=== PATIENT | female | born 1975 | race Caucasian/White ===

== ENCOUNTER 2021-08-30 04:01 | Emergency (ER) | payer BC ==
[~2021-08-30] VITALS: Ht 170.2 cm; Wt 62.6 kg
--- NOTE | 2021-08-30 04:17 | NUR ---
pt in room 5a pt ambulated to the room pt states she is having abdominal pain and fever. Dr. Tello at bedside for MSE.
[2021-08-30] MEDS ORDERED: IV NORMAL SALINE 1000 ML BAG IV ONE (04:30)
[2021-08-30] MEDS ORDERED: ONDANSETRON 4 MG/2 ML VIAL IV ONE (04:30)
[2021-08-30] MEDS ORDERED: ACETAMINOPHEN ES 500 MG TABLET PO ONE (04:30)
[2021-08-30] MEDS ORDERED: ACETAMINOPHEN ES 500 MG TABLET ONE (04:32)
[2021-08-30] MEDS ORDERED: ONDANSETRON 4 MG/2 ML VIAL ONE (04:32)
[2021-08-30 04:56] LABS: *BILIRUBIN,URIN NEGATIVE (NEGATIVE); *BLOOD, URINE 3+ (NEGATIVE); *CLARITY,URINE CLOUDY (CLEAR); *COLOR,URINE YELLOW (YELLOW); *KETONES,URINE 1+ (NEGATIVE); *UROBILINOGEN,URINE 0.2 E.U./dl (NORMAL); LEUKOCYTE ESTERASE ,URINE 3+ (NEGATIVE); NITRITE, URINE POSITIVE (NEGATIVE); UGLUCOSE NEGATIVE (NEGATIVE)
[2021-08-30 05:00] LABS: HEMATOCRIT 33.3 % (31.2-41.9); MEAN CORPUSCULAR HEMOGLOBIN 32.2 uug (24.7-32.8); MEAN CORPUSCULAR VOLUME 94.1 fL (75.5-95.3); PLATELET COUNT (AUTO) 198 K/uL (179-408)
--- NOTE | 2021-08-30 05:03 | NUR ---
Dr. Tello at bedside to speak with pt and her .
--- NOTE | 2021-08-30 05:03 | NUR ---
fingerprint technician at bedside. pt's at bedside.
[2021-08-30 05:13] LABS: CREATININE 0.9 mg/dL (0.6-1.3); POTASSIUM 3.5 mmol/L (3.5-5.1)
[2021-08-30 05:17] LABS: BILIRUBIN,DIRECT 0.3 mg/dL (0.0-0.2); TOTAL PROTEIN, SERUM 7.5 g/dL (6.4-8.2)
[2021-08-30 05:43] LABS: *URINE HCG, QUAL NEGATIVE (NEGATIVE)
[2021-08-30 05:46] LABS: BACTERIA,URINE MANY /HPF (NONE SEEN); RBC,URINE 20-50 /HPF (0-3); SQUAMOUS EPITHELIAL CELL,UR FEW /HPF (NONE SEEN); WBC,URINE TNTC /HPF (0-3)
[2021-08-30] MEDS ORDERED: CEFTRIAXONE /D5W 50ML IVPB **ER PYXIS IV ONE (05:59)
[2021-08-30] MEDS ORDERED: CEFTRIAXONE 1 G in IV DEXTROSE 5% 50 ML IV ONE (06:00)
--- NOTE | 2021-08-30 06:10 | NUR ---
pt taken to cat scan.
[2021-08-30] MEDS ORDERED: SWABABLE VALVE TRANSFER SET EA MC ONE (06:14)
[2021-08-30] MEDS ORDERED: IOHEXOL 300MG/ML 100 ML INFUS..BTL ONE (06:14)
[2021-08-30] MEDS ORDERED: IV NORMAL SALINE 250 ML IV ONE (06:14)
--- NOTE | 2021-08-30 06:29 | NUR ---
pt returned from cat scan.
[2021-08-30] MEDS ORDERED: ESTR1PAT7 TD (06:36)
[2021-08-30] MEDS ORDERED: FLUC150T PO (06:36)
[2021-08-30] MEDS ORDERED: PROG100C15 PO (06:36)
[2021-08-30] MEDS ORDERED: KETOROLAC TROMETHAMINE 15 MG INJ ONE (06:50)
[2021-08-30] MEDS ORDERED: KETOROLAC TROMETHAMINE 15 MG INJ IVP ONE (07:00)
[2021-08-30] MEDS ORDERED: CEPH500C2 PO (07:03)
[2021-08-30] MEDS ORDERED: PHEN-705 PO (08:51)
--- NOTE | 2021-08-30 08:55 | NUR ---
Removed IV intact, site okay, bandaged. Gave pt RX and d/c instructions, pt verbalized understanding.
[2021-08-30 09:05] VITALS: BP 102/39
== END 2021-08-30 09:08 | disposition home or self-care (01) ==
LOC: ER 04:10
DX: R10.9 Unspecified abdominal pain (principal); N39.0 Urinary tract infection, site not specified; Z20.822 Contact with and (suspected) exposure to COVID-19; Z87.19 Personal history of other diseases of the digestive system
CPT/HCPCS: 99285; 74177; 96365; 76856; 96375; 96361; 87426; 80076; 80048; 81001; 84703; 83690; 85025; 87186; 87086; 87077; 36415; J0696; J1885; J2405; Q9967; J7040; A4663; A9150

== ENCOUNTER 2024-02-26 14:53 | Emergency (ER) | payer BC ==
[~2024-02-26] VITALS: Ht 170.2 cm; Wt 59.9 kg
[~2024-02-26 14:53] MED LIST: CEPH500C2 PO; ESTR1PAT7 TD; FLUC150T PO; PHEN-705 PO; PROG100C15 PO
[2024-02-26 15:22] VITALS: O2SAT 99
== END 2024-02-26 18:47 | disposition left against medical advice (07) ==
LOC: ER 14:53
DX: R07.89 Other chest pain (principal); Z53.21 Procedure and treatment not carried out due to patient leaving prior to being seen by health care provider
CPT/HCPCS: A4606; A4663